=== PATIENT | male | born 1980 | race Caucasian/White ===

== ENCOUNTER 2022-10-07 16:37 | Emergency (ER) | payer OTHER ==
[~2022-10-07] VITALS: Ht 190.5 cm; Wt 81.6 kg
[2022-10-07] MEDS ORDERED: HYDROCODONE/APAP 10MG-325MG TAB PO ONE (17:45)
[2022-10-07] MEDS ORDERED: HYDROCODONE/APAP 10MG-325MG TAB ONE (17:54)
[2022-10-07] MEDS ORDERED: HYDROCODON-ACE1 EAC9 PO (18:07)
[2022-10-07] MEDS ORDERED: ONDANSETRON ODT4 MG PO (18:07)
== END 2022-10-07 18:25 | disposition home or self-care (01) ==
LOC: ER 16:41
DX: S43.102A Unspecified dislocation of left acromioclavicular joint, initial encounter (principal); M25.561 Pain in right knee; W01.0XXA Fall on same level from slipping, tripping and stumbling without subsequent striking against object, initial encounter; Y93.64 Activity, baseball; Y92.89 Other specified places as the place of occurrence of the external cause; I10 Essential (primary) hypertension
CPT/HCPCS: 99284